=== PATIENT | male | born 1985 | race African-American/Black ===

== ENCOUNTER 2017-07-16 19:55 | Emergency (ER) | payer SELFPAY ==
[2017-07-16 20:03] VITALS: BP 148/102
[2017-07-16] MEDS ORDERED: Cephalexin CAP* 250 MG ONE (20:08)
[2017-07-16] MEDS ORDERED: Cephalexin CAP* 250 MG PO SCH (21:00)
--- NOTE | 2017-07-16 21:16 | RAD ---
Indication: Leg pain after tasering Comparison: None. Technique: AP and lateral views right lower leg. Report: The visualized bones are adequately corticated and well aligned. There is no acute fracture, dislocation or other focal abnormality. The soft tissues appear grossly normal. Incidentally noted is an electronic external ankle bracelet. IMPRESSION: No radiographically apparent acute abnormality of the right lower leg If the patient's symptoms persist, follow-up imaging is recommended.
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
== END 2017-07-16 20:56 | disposition home or self-care (01) ==
LOC: ED 19:55
DX: S81.841A Puncture wound with foreign body, right lower leg, initial encounter (principal); W45.8XXA Other foreign body or object entering through skin, initial encounter; Y93.9 Activity, unspecified; Y92.9 Unspecified place or not applicable
CPT/HCPCS: 99282; A9270-GY